=== PATIENT | male | born 1980 | race Two or more races ===

== ENCOUNTER 2023-12-27 11:34 | Outpatient (CLI) | payer OTHER | END 2023-12-27 11:35 | disposition home or self-care (01) | LOC: NUCLEAR 11:34 | PROVIDERS: ATTEND Internal Medicine | DX: I27.24 Chronic thromboembolic pulmonary hypertension (principal) | CPT/HCPCS: 78582; A9540 ==

== ENCOUNTER 2024-02-27 06:06 | Outpatient (CLI) | payer OTHER ==
[2024-02-27 07:09] LABS: HEMATOCRIT 39.5 % (39.0-48.0); MEAN CORPUSCULAR HEMOGLOBIN 31.1 pg (27.00-32.0); MEAN CORPUSCULAR HGB CONC 35.3 g/dl (32.0-36.0); PLATELET COUNT 167 K/uL (150-450); RED BLOOD COUNT 4.49 M/uL (4.00-6.00); RED CELL DISTRIBUTION WIDTH 14.1 % (11.5-14.5)
[2024-02-27 08:23] LABS: ALBUMIN 3.9 gm/dL (3.4-5.0); BILIRUBIN TOTAL 0.52 mg/dL (0.3-1.2); CALCIUM 8.7 mg/dL (8.5-10.1); CREATININE SERUM 1.02 mg/dL (0.70-1.30); GFR 79.34; GLOBULINA 2.8 G/DL (2.4-3.5); POTASSIUM 3.99 mEq/L (3.5-5.1); TOTAL PROTEIN 6.7 gm/dL (6.4-8.2); TSH 4.81 uIU/mL (0.358-3.74)
[2024-02-27 08:25] LABS: MANUAL PLATELET COUNT 368
[2024-02-27 08:26] LABS: PLATELET ESTIMATE NORMAL (NORMAL)
[2024-02-27 10:59] LABS: FOLIC ACID > 20.00 ng/ml (4.78-20)
== END 2024-02-27 06:07 | disposition home or self-care (01) ==
LOC: LAB 06:06
PROVIDERS: ATTEND Internal Medicine Hematology & Oncology
DX: D68.61 Antiphospholipid syndrome (principal); I80.221 Phlebitis and thrombophlebitis of right popliteal vein; I80.222 Phlebitis and thrombophlebitis of left popliteal vein; I26.99 Other pulmonary embolism without acute cor pulmonale; D50.8 Other iron deficiency anemias; R79.9 Abnormal finding of blood chemistry, unspecified; I10 Essential (primary) hypertension; R74.02 Elevation of levels of lactic acid dehydrogenase [LDH]; K76.89 Other specified diseases of liver; D51.8 Other vitamin B12 deficiency anemias; E03.8 Other specified hypothyroidism

== ENCOUNTER 2024-05-14 06:12 | Outpatient (CLI) | payer OTHER ==
[2024-05-14 07:25] LABS: PH,URINE 6.5 (5.0-8.0); URINE APPEARANCE Clear; URINE BILIRRUBIN Negative (NEGATIVE); URINE BLOOD Negative; URINE COLOR Yellow; URINE GLUCOSE Negative (NEGATIVE); URINE KETONE Negative (NEGATIVE); URINE LEUKOCYTE Negative; URINE NITRATE Negative; URINE PROTEIN Negative (NEGATIVE)
[2024-05-14 07:27] LABS: URINE BACTERIA 35.4 uL (0.0-1933); URINE EPITHELIAL CELLS 1.5 uL (0.0-38.8); URINE RBC 4.4 uL (0.0-20.8)
[2024-05-14 07:42] LABS: URINE CAST 0.14 uL (0.0-1.40); URINE WBC 1.4 uL (0.0-23.2)
[2024-05-14 07:45] LABS: HEMATOCRIT 41.8 % (39.0-48.0); HEMOGLOBIN 14.7 g/dL (13-16.00); MEAN CELL VOLUME 87.4 fL (80.0-100.00); MEAN CORPUSCULAR HEMOGLOBIN 30.7 pg (27.00-32.0); MEAN CORPUSCULAR HGB CONC 35.2 g/dl (32.0-36.0); PLATELET COUNT 177 K/uL (150-450); RED BLOOD COUNT 4.78 M/uL (4.00-6.00); RED CELL DISTRIBUTION WIDTH 13.9 % (11.5-14.5)
[2024-05-14 08:48] LABS: ALBUMIN 4.2 gm/dL (3.4-5.0); ALKALINE PHOSPHATASE 62 U/L (50-136); ALT/SGPT 45 U/L (12-78); ANION GAP 7 (10.0-20.0); AST/SGOT 22 U/L (15-37); BILIRUBIN TOTAL 0.51 mg/dL (0.3-1.2); BLOOD UREA NITROGEN 19 mg/dL (7-18); BUN CREA RATIO 16 (7.0-25.0); CALCIUM 8.7 mg/dL (8.5-10.1); CARBON DIOXIDE 28 mEq/L (21-32); CHLORIDE 109 mmol/L (98-107); CHOL HDL RATIO 4.5 (0-5.0); CHOLESTEROL 178 mg/dL (0-200); CREATININE SERUM 1.16 mg/dL (0.70-1.30); GLOBULINA 2.7 G/DL (2.4-3.5); GLUCOSE FASTING 91 mg/dL (65-100); HDL 40 mg/dl (40-60); LDL 102 mg/dl (0-130); OSMOLALITY SERUM 281 MOSM/KG (275-295); POTASSIUM 4.09 mEq/L (3.5-5.1); SODIUM 140 mmol/L (136-145); TOTAL PROTEIN 6.9 gm/dL (6.4-8.2); TRIGLYCERIDES 180 mg/dL (0-150); VLDL 36 (0-39)
[2024-05-14 08:49] LABS: C-REACTIVE PROTEIN < 0.29 MG/DL (0.00-0.29)
== END 2024-05-14 06:13 | disposition home or self-care (01) ==
LOC: LAB 06:12
PROVIDERS: ATTEND Specialist
DX: E11.21 Type 2 diabetes mellitus with diabetic nephropathy (principal); N39.9 Disorder of urinary system, unspecified; N25.81 Secondary hyperparathyroidism of renal origin; D64.89 Other specified anemias; E11.69 Type 2 diabetes mellitus with other specified complication; N40.1 Benign prostatic hyperplasia with lower urinary tract symptoms; Z13.220 Encounter for screening for lipoid disorders; M00.80 Arthritis due to other bacteria, unspecified joint

== ENCOUNTER 2024-06-18 11:51 | Outpatient (CLI) | payer OTHER | END 2024-06-18 11:52 | disposition home or self-care (01) | LOC: NUCLEAR 11:51 | PROVIDERS: ATTEND Specialist | DX: M81.0 Age-related osteoporosis without current pathological fracture (principal) ==

== ENCOUNTER 2024-07-08 20:12 | Emergency (ER) | payer OTHER ==
[~2024-07-08] VITALS: Ht 154.9 cm; Wt 65.8 kg
[2024-07-08] MEDS ORDERED: XARELTO20 MG PO (20:15)
[2024-07-08] MEDS ORDERED: TRAZODONE HCL50 MG PO (20:16)
[2024-07-08] MEDS ORDERED: LEVOTHYROXINE25 MC2 PO (20:16)
[2024-07-08] MEDS ORDERED: TETANUS DIPHTHERIA TOX. ADSOR 5 ML VIAL IM ONE (21:39)
[2024-07-08] MEDS ORDERED: TETANUS & DIPHTHERIA TOX,ADULT 0.5 ML VIAL IM ONE (21:45)
== END 2024-07-08 22:04 | disposition home or self-care (01) ==
LOC: ER 20:14
DX: S01.01XA Laceration without foreign body of scalp, initial encounter (principal); Y33.XXXA Other specified events, undetermined intent, initial encounter; Y93.89 Activity, other specified; Y92.89 Other specified places as the place of occurrence of the external cause; Y99.8 Other external cause status
CPT/HCPCS: 90471; 90714; 96372; 99282; J1670

== ENCOUNTER 2024-07-18 09:33 | Emergency (ER) | payer OTHER ==
[~2024-07-18] VITALS: Ht 154.9 cm; Wt 65.8 kg
[~2024-07-18 09:33] MED LIST: LEVOTHYROXINE25 MC2 PO; TRAZODONE HCL50 MG PO; XARELTO20 MG PO
[2024-07-18 09:50] VITALS: BP 131/84; O2SAT 100
== END 2024-07-18 11:06 | disposition home or self-care (01) ==
LOC: ER 09:35
DX: Z48.02 Encounter for removal of sutures (principal)

== ENCOUNTER 2024-07-19 07:04 | Outpatient (CLI) | payer OTHER | END 2024-07-19 07:05 | disposition home or self-care (01) | LOC: NUCLEAR 07:04 | PROVIDERS: ATTEND Internal Medicine | DX: E21.0 Primary hyperparathyroidism (principal) | CPT/HCPCS: 78071; A9500 ==

== ENCOUNTER 2024-08-24 07:48 | Outpatient (CLI) | payer OTHER ==
[2024-08-24 08:49] LABS: PH,URINE 6.5 (5.0-8.0); URINE APPEARANCE Clear; URINE BILIRRUBIN Negative (NEGATIVE); URINE BLOOD Trace; URINE COLOR Yellow; URINE GLUCOSE Negative (NEGATIVE); URINE KETONE Trace (NEGATIVE); URINE LEUKOCYTE Negative; URINE NITRATE Negative; URINE PROTEIN Negative (NEGATIVE); URINE UROBILINOGEN 0.2 E.U./dl
[2024-08-24 08:54] LABS: URINE BACTERIA 4.8 uL (0.0-1933); URINE RBC 5.7 uL (0.0-20.8)
[2024-08-24 08:58] LABS: HEMATOCRIT 42.9 % (39.0-48.0); HEMOGLOBIN 14.7 g/dL (13-16.00); MEAN CELL VOLUME 88.3 fL (80.0-100.00); MEAN CORPUSCULAR HEMOGLOBIN 30.2 pg (27.00-32.0); MEAN CORPUSCULAR HGB CONC 34.2 g/dl (32.0-36.0); PLATELET COUNT 172 K/uL (150-450); RED BLOOD COUNT 4.86 M/uL (4.00-6.00); RED CELL DISTRIBUTION WIDTH 13.7 % (11.5-14.5)
[2024-08-24 09:16] LABS: INR 0.98; PARTIAL THROMBOPLASTIN TIME 28.9 SECONDS (22.0-34.0); PROTHROMBIN TIME 10.7 SECONDS (9.0-11.5)
[2024-08-24 09:27] LABS: URINE CAST 0.14 uL (0.0-1.40); URINE EPITHELIAL CELLS 0.1 uL (0.0-38.8); URINE WBC 0.7 uL (0.0-23.2)
[2024-08-24 10:20] LABS: ALBUMIN 4.1 gm/dL (3.4-5.0); BILIRUBIN TOTAL 0.47 mg/dL (0.3-1.2); CALCIUM 8.9 mg/dL (8.5-10.1); CHOL HDL RATIO 4.4 (0-5.0); CREATININE SERUM 1.09 mg/dL (0.70-1.30); FREE TRIODOTIRONINE 2.92 pg/ml (2.18-3.98); GFR 73.49; GLOBULINA 2.7 G/DL (2.4-3.5); POTASSIUM 4.35 mEq/L (3.5-5.1); PROSTATIC SPECIFIC ANTIGEN 0.988 NG/ML (0.010-4.00); T4 FREE 0.94 NG/ML (0.76-1.46); TOTAL PROTEIN 6.8 gm/dL (6.4-8.2); TSH 3.28 uIU/mL (0.358-3.74)
[2024-08-24 10:26] LABS: MANUAL PLATELET COUNT 224
[2024-08-24 10:27] LABS: PLATELET ESTIMATE NORMAL (NORMAL)
[2024-08-24 13:10] LABS: FOLIC ACID > 20.00 ng/ml (4.78-20); VITAMIN D3 25 HYDROXY 44.35 ng/ml (30-120)
== END 2024-08-24 07:59 | disposition home or self-care (01) ==
LOC: LAB 07:48
PROVIDERS: ATTEND Internal Medicine Hematology & Oncology
DX: E03.9 Hypothyroidism, unspecified (principal); E11.21 Type 2 diabetes mellitus with diabetic nephropathy; N39.0 Urinary tract infection, site not specified; D40.0 Neoplasm of uncertain behavior of prostate; E78.2 Mixed hyperlipidemia; E11.65 Type 2 diabetes mellitus with hyperglycemia; D64.9 Anemia, unspecified; D68.8 Other specified coagulation defects; E55.9 Vitamin D deficiency, unspecified; D68.61 Antiphospholipid syndrome; I80.221 Phlebitis and thrombophlebitis of right popliteal vein; I80.222 Phlebitis and thrombophlebitis of left popliteal vein; I26.99 Other pulmonary embolism without acute cor pulmonale; F78.A9 Other genetic related intellectual disability; D50.8 Other iron deficiency anemias; R79.9 Abnormal finding of blood chemistry, unspecified; I10 Essential (primary) hypertension; R74.02 Elevation of levels of lactic acid dehydrogenase [LDH]; K76.89 Other specified diseases of liver; R79.0 Abnormal level of blood mineral

== ENCOUNTER → 2024-10-02 | Emergency (ER) | payer OTHER ==
[~2024-10-02] VITALS: Ht 154.9 cm; Wt 64.4 kg
[~2024-10-02] MED LIST changes: +DEXAMETHASONE SODIUM PHOSPHATE 4 MG/ML VIAL IM STA
[2024-10-02 11:13] LABS: HEMATOCRIT 40.1 % (39.0-48.0); HEMOGLOBIN 14.1 g/dL (13-16.00); MEAN CELL VOLUME 85.9 fL (80.0-100.00); MEAN CORPUSCULAR HEMOGLOBIN 30.2 pg (27.00-32.0); MEAN CORPUSCULAR HGB CONC 35.1 g/dl (32.0-36.0); PLATELET COUNT 216 K/uL (150-450); RED BLOOD COUNT 4.67 M/uL (4.00-6.00); RED CELL DISTRIBUTION WIDTH 13.5 % (11.5-14.5)
[2024-10-02 13:56] LABS: COVID-19 AG NEGATIVE (NEGATIVE)
[2024-10-02 13:57] LABS: INFLUENZA A AG NEGATIVE (NEGATIVE)
== END | disposition home or self-care (01) ==
LOC: ER 09:24
PROVIDERS: General Practice
DX: B34.9 Viral infection, unspecified (principal); R05.9 Cough, unspecified; Z20.822 Contact with and (suspected) exposure to COVID-19
CPT/HCPCS: 36415; 71046; 96372; 99283; J1100

== ENCOUNTER 2025-01-03 07:15 | Outpatient (CLI) | payer OTHER ==
[~2025-01-03 07:15] MED LIST changes: -DEXAMETHASONE SODIUM PHOSPHATE 4 MG/ML VIAL IM STA
== END 2025-01-03 07:18 | disposition home or self-care (01) ==
LOC: TOM 07:15
PROVIDERS: ATTEND Internal Medicine Gastroenterology
DX: R10.30 Lower abdominal pain, unspecified (principal)
CPT/HCPCS: 74178; Q9965

== ENCOUNTER 2025-01-09 09:45 | Emergency (ER) | payer OTHER ==
[~2025-01-09] VITALS: Ht 154.9 cm; Wt 63.5 kg
[2025-01-09 10:53] LABS: BASO % 0.6 % (0.1-1.2); EOS # 0.08 (0.04-0.54); EOS % 1.6 % (0.7-7.0); LYMPH # 1.23 (1.18-3.74); LYMPH % 23.8 % (19.3-53.1); MEAN PLATELET VOLUME 10.10 fl (9.4-12.4); MONO # 0.37 (0.24-0.82); MONO % 7.2 % (4.7-12.5); NEUT # 3.44 (1.56-6.13); NEUT % 66.6 % (34.0-71.1); RED CELL DISTRIBUTION WIDTH 13.6 % (11.6-14.4)
[2025-01-09 11:08] LABS: URINE APPEARANCE Cloudy; URINE BILIRRUBIN Negative (NEGATIVE); URINE BLOOD Negative; URINE COLOR Yellow; URINE GLUCOSE Negative (NEGATIVE); URINE KETONE Negative (NEGATIVE); URINE LEUKOCYTE Negative; URINE NITRATE Negative; URINE PROTEIN Negative (NEGATIVE); URINE UROBILINOGEN 0.2 E.U./dl
[2025-01-09 11:23] LABS: ALT/SGPT 40.0 U/L (12-78); AST/SGOT 17.0 U/L (15-37); BILIRUBIN TOTAL 0.83 mg/dL (0.3-1.2); BUN CREA RATIO 20.0 (7.0-25.0); CREATININE SERUM 0.95 mg/dL (0.70-1.30); GFR 86.12; GLOBULINA 2.8 G/DL (2.4-3.5); GLUCOSE FASTING 104.0 mg/dL (65-100); OSMOLALITY SERUM 284.0 MOSM/KG (275-295)
[2025-01-09 12:19] LABS: URINE BACTERIA 0 uL (0.0-1933); URINE CAST 0.00 uL (0.0-1.40); URINE EPITHELIAL CELLS 0.4 uL (0.0-38.8); URINE RBC 1.7 uL (0.0-20.8); URINE WBC 0.3 uL (0.0-23.2)
[2025-01-09 13:17] LABS: ob POSITIVE (NEGATIVE)
== END 2025-01-09 14:55 | disposition home or self-care (01) ==
LOC: ER 09:45
PROVIDERS: General Practice
DX: K62.89 Other specified diseases of anus and rectum (principal); Q21.19 Other specified atrial septal defect; K21.9 Gastro-esophageal reflux disease without esophagitis; F84.0 Autistic disorder; J32.9 Chronic sinusitis, unspecified; I82.499 Acute embolism and thrombosis of other specified deep vein of unspecified lower extremity; K57.30 Diverticulosis of large intestine without perforation or abscess without bleeding